=== PATIENT | female | born 1990 | race Caucasian/White ===

== ENCOUNTER 2017-05-07 14:31 | Emergency (ER) | payer MEDICAID ==
[~2017-05-07] VITALS: Ht 160 cm; Wt 68.0 kg
[2017-05-07 14:52] VITALS: BP 122/89
== END 2017-05-07 15:12 | disposition home or self-care (01) ==
LOC: ER 14:31
DX: K01.1 Impacted teeth (principal); F17.210 Nicotine dependence, cigarettes, uncomplicated

== ENCOUNTER 2018-12-28 09:31 | Emergency (ER) | payer MEDICAID ==
[~2018-12-28] VITALS: Ht 160 cm; Wt 68.0 kg
[2018-12-28 11:33] LABS: Basophils # (auto) 0.1 uL; Basophils % (auto) 0.4 % (0.0-2.0); Eosinophils # (auto) 0 uL; Hematocrit 44.7 % (36.0-46.0); Lymphocytes # (auto) 1.5 uL; Lymphocytes % (auto) 9.4 % (10.0-50.0); Mean Corpuscular Hemoglobin 30.4 pg (28.0-32.0); Mean Corpuscular Hgb Conc. 33.7 g/dL (32.0-36.0); Mean Corpuscular Volume 90.3 fL (80.0-100.0); Monocytes # (auto) 0.8 uL; Neutrophils # (auto) 13.9 uL; Neutrophils % (auto) 85.2 % (37.0-80.0); Platelet Count (auto) 410 10^3/uL (140-450); Red Blood Cells 4.95 10^6/uL (4.0-5.20); Red Cell Distribution Width 13.7 % (11.8-14.3); White Blood Cell 16.3 10^3/uL (4.4-10.8)
[2018-12-28 11:51] LABS: Alanine Aminotransferase 33 U/L (13-56); Albumin 4.7 g/dL (3.4-5.0); Anion Gap 16 (5-15); Aspartate Aminotransferase 14 U/L (15-37); BUN/Creatinine Ratio 19.4; Blood Urea Nitrogen 14 mg/dL (7-18); Carbon Dioxide 18 mmol/L (21-32); Chloride 104 mmol/L (98-107); GFR African American 124 mL/min; GFR Non-African American 103 mL/min; Glucose 86 mg/dL (74-106); Magnesium 2.3 mg/dL (1.6-2.6); Potassium 3.3 mmol/L (3.5-5.1); Sodium 138 mmol/L (136-145)
[2018-12-28 11:56] LABS: Alkaline Phosphatase 111 U/L (45-117); Bilirubin, Total 0.7 mg/dL (0.2-1.0); Total Protein 9.1 g/dL (6.4-8.2)
[2018-12-28 11:57] VITALS: BP 124/82
== END 2018-12-28 11:56 | disposition home or self-care (01) ==
LOC: ER 09:31
DX: F41.9 Anxiety disorder, unspecified (principal); F17.210 Nicotine dependence, cigarettes, uncomplicated; F12.10 Cannabis abuse, uncomplicated; F15.10 Other stimulant abuse, uncomplicated
CPT/HCPCS: 36415; 80053; 83735; 84484; 85025; 93005

== ENCOUNTER 2019-10-11 16:56 | Emergency (ER) | payer MEDICAID ==
[~2019-10-11] VITALS: Ht 160 cm; Wt 70.3 kg
[2019-10-11 17:35] VITALS: BP 138/108
[2019-10-11 18:02] LABS: Urine Pregnacy Test Positive (Negative)
[2019-10-11 18:04] LABS: Urine Bacteria FEW /hpf (None Seen); Urine Blood Negative /uL (Negative); Urine Mucus FEW (None Seen); Urine Specific Gravity 1.031 (1.001-1.035); Urine WBC 12 /hpf (0 - 5)
[2019-10-11 18:14] LABS: Alcohol, Urine < 3.0 mg/dL (0-5); Amphetamine Screen, Urine POSITIVE (NEGATIVE); Barbiturate Scree,Urine NEGATIVE (NEGATIVE); Benzodiazephine Screen, Urine NEGATIVE (NEGATIVE); Cannabinoid Screen, Urine POSITIVE (NEGATIVE); Cocaine Screen, Urine NEGATIVE (NEGATIVE); Phencyclidine Screen, Urine NEGATIVE (NEGATIVE)
[2019-10-11 18:22] LABS: Opiate Scree,Urine NEGATIVE (NEGATIVE)
== END 2019-10-11 20:04 | disposition left against medical advice (07) ==
LOC: ER 16:56
DX: O26.892 Other specified pregnancy related conditions, second trimester (principal); T74.21XA Adult sexual abuse, confirmed, initial encounter; Z3A.24 24 weeks gestation of pregnancy; Z53.21 Procedure and treatment not carried out due to patient leaving prior to being seen by health care provider
CPT/HCPCS: 80307; 81001; 81025

== ENCOUNTER 2022-01-03 09:36 | Emergency (ER) | payer MEDICAID ==
[~2022-01-03] VITALS: Ht 167.6 cm; Wt 77.1 kg
[2022-01-03 09:55] VITALS: BP 115/84
[2022-01-03] MEDS ORDERED: LORazepam 2MG/ML-1ML VIAL IM ONE (10:15)
== END 2022-01-03 11:35 | disposition home or self-care (01) ==
LOC: ER 09:36
DX: F41.9 Anxiety disorder, unspecified (principal); F17.210 Nicotine dependence, cigarettes, uncomplicated; F12.10 Cannabis abuse, uncomplicated; F15.10 Other stimulant abuse, uncomplicated